=== PATIENT | male | born 1995 | race Two or more races ===

== ENCOUNTER 2017-04-14 03:36 | Emergency (ER) | payer MEDICARE ==
[2017-04-14 04:08] VITALS: BP 125/89; PULSE 73; TEMP 97.9; BMI 31.4
[2017-04-14] MEDS ORDERED: KETOROLAC TROMETHAMINE 30 MG/1 ML VIAL IVPUSH ONE (04:35)
[2017-04-14] MEDS ORDERED: SODIUM CHLORIDE 0.9% 1000 ML INFUS.BAG IV ONE (04:35)
[2017-04-14] MEDS ORDERED: METOCLOPRAMIDE HCL INJECTION 10 MG/2 ML VIAL IVPB ONE (04:36)
--- NOTE | 2017-04-14 04:39 | PDOC ---
History of Present Illness <Irma Angel - Last Filed: 04/14/17 06:49> - General History Source: Patient Exam Limitations: No Limitations - History of Present Illness Initial Comments: 04/14/17 05:08 The patient is a 22-year-old male with a significant past medical history of autism, Downs syndrome, and asthma, and presents to the emergency department with back pain, nausea, and dizziness that started today. He reports the back pain is diffuse. He states he has been spitting frequently due to the nausea. He also endorses a cough and diaphoresis. He denies having lifted any heavy objects recently. He denies any significant change in his diet. He denies any sick contacts. The patient denies chest pain, shortness of breath, and headache. The patient denies fever, chills, abdominal pain, hemoptysis, diarrhea and constipation. The patient denies dysuria, frequency, urgency and hematuria. He denies any Hx of kidney stones. Allergies: shrimp Past Surgical History: None reported Social History: No toxic habits reported PCP: Dr. Valenzuela <Lata Mcintyre - Last Filed: 04/14/17 06:57> - General Chief Complaint: Nausea/Vomiting Stated Complaint: FEVER/VOMITING/BACK PAIN Time Seen by Provider: 04/14/17 04:09 Past History - Past Medical History Asthma: Yes Seizures: Yes - Immunization History Immunization Up to Date: No - Psycho/Social/Smoking Cessation Hx Anxiety: No Suicidal Ideation: No Smoking History: Never smoked Have you smoked in the past 12 months: No Information on smoking cessation initiated: No Hx Alcohol Use: No Drug/Substance Use Hx: No Substance Use Type: None <Irma Angel - Last Filed: 04/14/17 06:49> <Lata Mcintyre - Last Filed: 04/14/17 06:57> - Past Medical History Allergies/Adverse Reactions: Allergies Allergy/AdvReac Type Severity Reaction Status Date / Time SHRIMP Allergy Hives Uncoded 04/14/17 04:08 Home Medications: Ambulatory Orders Carboxymethylcellulose Sodium [Lubricant Eye Drops] 1 each OU Q4H PRN #1 droperette 05/07/15 Doxycycline Hyclate [Vibramycin -] 100 mg PO BID #14 cap 05/07/15 Prednisone [Deltasone -] 10 mg PO DAILY #5 tablet 05/07/15 Prednisone [Deltasone -] 60 mg PO DAILY #12 tablet 05/07/15 Valacyclovir HCl [Valtrex -] 1,000 mg PO TID #21 tablet 05/07/15 Metformin HCl [Glucophage] 500 mg PO DAILY #30 tablet 04/14/17 Review of Systems - Review of Systems Able to Perform ROS?: Yes Comments:: 04/14/17 05:08 CONSTITUTIONAL: Present: (+) diaphoresis Absent: fever, chills, generalized weakness, malaise, loss of appetite HEENT: Absent: rhinorrhea, nasal congestion, throat pain, throat swelling, difficulty swallowing, mouth swelling, ear pain, eye pain, visual changes CARDIOVASCULAR: Absent: chest pain, syncope, palpitations, irregular heart rate, peripheral edema RESPIRATORY: Present: (+) cough Absent: shortness of breath, dyspnea with exertion, orthopnea, wheezing, stridor , hemoptysis GASTROINTESTINAL: Present: (+) nausea Absent: abdominal pain, abdominal distension, vomiting, diarrhea, constipation, melena, hematochezia GENITOURINARY: Absent: dysuria, frequency, urgency, hesitancy, hematuria, flank pain, genital pain MUSCULOSKELETAL: Absent: myalgia, arthralgia, joint swelling SKIN: Absent: rash, itching, pallor HEMATOLOGIC/IMMUNOLOGIC: Absent: easy bleeding, easy bruising, lymphadenopathy, frequent infections ENDOCRINE: Absent: unexplained weight gain, unexplained weight loss, heat intolerance, cold intolerance NEUROLOGIC: Present: (+) dizziness Absent: headache, focal weakness or paresthesias, unsteady gait, seizure, mental status changes, bladder or bowel incontinence PSYCHIATRIC: Absent: anxiety, depression, suicidal or homicidal ideation, hallucinations. <Lata Mcintyre - Last Filed: 04/14/17 06:57> *Physical Exam - Vital Signs Last Vital Signs Temp Pulse Resp BP Pulse Ox 97.9 F 73 18 125/89 97 04/14/17 04:03 04/14/17 04:03 04/14/17 04:03 04/14/17 04:03 04/14/17 04:03 <Irma Angel - Last Filed: 04/14/17 06:49> - Vital Signs Last Vital Signs Temp Pulse Resp BP Pulse Ox 97.9 F 73 18 125/89 97 04/14/17 04:03 04/14/17 04:03 04/14/17 04:03 04/14/17 04:03 04/14/17 04:03 - Physical Exam Comments: 04/14/17 05:09 GENERAL: Afebrile. Well developed, well nourished. Awake and alert. No acute distress. HEENT: Normocephalic, atraumatic. PERRLA, EOMI. No conjunctival pallor. Sclera are non- icteric. Moist mucous membranes. Oropharynx is clear. NECK: Supple. Full ROM. No JVD. Carotid pulses 2+ and symmetric, without bruits. No thyromegaly. No lymphadenopathy. CARDIOVASCULAR: Regular rate and rhythm. No murmurs, rubs, or gallops. Distal pulses are 2+ and symmetric. PULMONARY: (+) Decreased breath sounds over the right middle lung. (+) Some egophony. No wheezing, rales or rhonchi. ABDOMINAL: Soft. Non-tender. Non-distended. No rebound or guarding. No organomegaly. Normoactive bowel sounds. MUSCULOSKELETAL Normal range of motion at all joints. No bony deformities or tenderness. No CVA tenderness. EXTREMITIES: No cyanosis. No clubbing. No edema. No calf tenderness. SKIN: Warm and dry. Normal capillary refill. No rashes. No jaundice. NEUROLOGICAL: Alert, awake, appropriate. Cranial nerves 2-12 intact. No deficits to light touch and temperature in face, upper extremities and lower extremities. No motor deficits in the in face, upper extremities and lower extremities. Normoreflexic in the upper and lower extremities. Normal speech. Toes are down- going bilaterally. PSYCHIATRIC: Cooperative. Good eye contact. Appropriate mood and affect. <Lata Mcintyre - Last Filed: 04/14/17 06:57> ED Treatment Course - LABORATORY CBC & Chemistry Diagram: 04/14/17 04:42 04/14/17 04:42 - RADIOLOGY Radiology Studies Ordered: Category Date Time Status CHEST PA & LAT [RAD] Stat Radiology 04/14/17 04:34 Ordered <Irma Angel - Last Filed: 04/14/17 06:49> - LABORATORY CBC & Chemistry Diagram: 04/14/17 04:42 04/14/17 04:42 - ADDITIONAL ORDERS Additional order review: 04/14/17 04:42 RBC 5.33 MCV 85.9 MCHC 33.6 RDW 13.7 MPV 8.4 Neutrophils % 81.1 Lymphocytes % 12.3 D Monocytes % 4.4 Eosinophils % 1.5 Basophils % 0.7 <Lata Mcintyre - Last Filed: 04/14/17 06:57> Medical Decision Making - Medical Decision Making 04/14/17 04:37 Pt felt unwell today with nausea and dizziness, now with dry heaving. Pt is afebrile and appears well, but tired. He has normal exam, but he has right sided lung decreased breath sounds and egophany. No ill contracts and no hx of food poisoning. He complains of back pain. No spinal pain and no midline tenderness, no flank pain or dysuria. Pt will get labs checked and he will have 1L saline, toradol, and reglan for his nausea. 04/14/17 05:27 WBC is 10; EKG is NSR; however rate is 97/borderline tachy, given that pt is at rest and sleeping. 04/14/17 06:07 Labs are normal, except for an elevated GLC; I am awaiting a UA, to see if pt has glc in his urine. UA is pending. CXR also pending. Both will not get back by 7AM. Pt will be signed out to the day ER doc. <Irma Angel - Last Filed: 04/14/17 06:49> - Medical Decision Making 04/14/17 06:57 Patient Name: Hira Jacobsen THIS IS A PRELIMINARYREPORT FROM [facility] EXAM: X-ray chest IMAGES: 3 INDICATION: Back pain. Rule out right-sided pneumonia. DATE OF SERVICE: 2017-04-14 05:04:49.0 COMPARISON: none FINDINGS: The heart size is upper normal. The lungs are clear. The bones and soft tissues are normal IMPRESSION: No acute pathology. THIS DOCUMENT HAS BEEN ELECTRONICALLY SIGNED <Lata Mcintyre - Last Filed: 04/14/17 06:57> *DC/Admit/Observation/Transfer - Discharge Dispostion Admit: No <Irma Angel - Last Filed: 04/14/17 06:49> - Attestations Scribe Attestion: 04/14/17 05:08 Documentation prepared by Lata Mcintyre, acting as medical clinic manager for Irma Angel MD. <Lata Mcintyre - Last Filed: 04/14/17 06:57> Diagnosis at time of Disposition: Diabetes mellitus, new onset - Discharge Dispostion Disposition: HOME Condition at time of disposition: Improved - Prescriptions Prescriptions: Metformin HCl [Glucophage] 500 mg PO DAILY #30 tablet - Referrals Referrals: Kiran Valenzuela MD [Primary Care Provider] - - Patient Instructions Printed Discharge Instructions: Lifestyle Changes as Effective as Drugs in Preventing Progression to Diabet, Exercising Caution When You Have Diabetes
[2017-04-14 04:56] LABS: BASOPHIL 0.7 % (0-2.0); EOSINOPHIL 1.5 % (0-4.5); MCH 28.8 pg (25.7-33.7); MCHC 33.6 g/dl (32.0-35.9); MEAN CELL VOLUME 85.9 fl (80-96); MEAN PLT VOLUME 8.4 fl (7.5-11.1); NEUTROPHILS 81.1 % (42.8-82.8); PLATELET COUNT 226 K/MM3 (134-434); RDW 13.7 % (11.9-15.9); WHITE BLOOD COUNT 10.4 K/mm3 (4.0-10.0)
[2017-04-14 05:26] LABS: INR 1.06 (0.82-1.09); PROTHROMBIN TIME (PATIENT) 11.7 SEC (9.98-11.88)
[2017-04-14 05:35] LABS: ALBUMIN 4.6 g/dl (3.4-5.0); ALK PHOS 70 U/L (45-117); AMYLASE 62 U/L (25-115); ANION GAP 12 (8-16); BILIRUBIN,TOTAL 0.4 mg/dL (0.2-1.0); CALCIUM 9.3 mg/dL (8.5-10.1); CO2 25 mmol/L (21-32); CREATININE 0.9 mg/dL (0.7-1.3); GLUCOSE,RANDOM 127 mg/dL (74-106); SGPT/ALT 50 U/L (12-78); TOT PROT 7.5 g/dl (6.4-8.2)
[2017-04-14 05:37] LABS: SGOT/AST 27 U/L (15-37)
[2017-04-14 06:13] LABS: URINE APPEARANCE CLEAR; URINE BILIRUBIN NEGATIVE (NEGATIVE); URINE BLOOD NEGATIVE (NEGATIVE); URINE COLOR STRAW; URINE GLUCOSE (UA) 1+ (NEGATIVE); URINE KETONE TRACE (NEGATIVE); URINE LEUK ESTERASE NEGATIVE (NEGATIVE); URINE NITRITE NEGATIVE (NEGATIVE); URINE PROTEIN NEGATIVE (NEGATIVE); URINE UROBILINOGEN NEGATIVE E.U./dl (0.2-1.0)
[2017-04-14] MEDS ORDERED: metFORMIN HCL 500 MG TABLET (FP) PO ONE (06:47)
[2017-04-14] MEDS ORDERED: metFORMIN HCL 500 MG TABLET (FP) ONE (06:56)
--- NOTE | 2017-04-14 10:30 | EKG ---
Test Reason : Blood Pressure : / mmHG Vent. Rate : 097 BPM Atrial Rate : 097 BPM P-R Int : 136 ms QRS Dur : 086 ms QT Int : 356 ms P-R-T Axes : 073 055 042 degrees QTc Int : 452 ms NORMAL SINUS RHYTHM NORMAL ECG NO PREVIOUS ECGS AVAILABLE Confirmed by RODRICK GONZALEZ MD ([id number]) on 04/14/2017 10:29:33 AM Referred By: Confirmed By:RODRICK GONZALEZ MD
== END 2017-04-14 07:02 | disposition home or self-care (01) ==
LOC: SUPCPDRO 03:36 → JER 03:36
PROC: 3E0333Z Introduction of Anti-inflammatory into Peripheral Vein, Percutaneous Approach (ICD-10-PCS; principal; 2017-04-14)
PROC: 3E033GC Introduction of Other Therapeutic Substance into Peripheral Vein, Percutaneous Approach (ICD-10-PCS; 2017-04-14)
DX: E13.8 Other specified diabetes mellitus with unspecified complications (principal)
CPT/HCPCS: 36415; 71020-TC; 80053; 81003; 82150; 83690; 85025; 85610; 93005; 93010; 96374; 96375; 99282-25

== ENCOUNTER 2018-09-24 11:41 | Emergency (ER) | payer MEDICARE, OTHER ==
--- NOTE | 2018-09-24 11:55 | PDOC ---
Rapid Medical Evaluation Medical Evaluation: Allergies Allergy/AdvReac Type Severity Reaction Status Date / Time SHRIMP Allergy Hives Uncoded 04/14/17 04:08 I have performed a brief in-person evaluation of this patient. The patient presents with a chief complaint of: Hx asthma, developmental delay, seizure; C/O fever, NBNB emesis, watery diarrhea, generalized abdominal pain which started today Pertinent physical exam findings: In NAD, abdomen soft, ND I have ordered the following: Labs, IVF, Zofran, Pepcid The patient will proceed to the ED for further evaluation. 09/24/18 11:52 \
[2018-09-24 11:56] VITALS: BMI 30.2
[2018-09-24] MEDS ORDERED: SODIUM CHLORIDE 1,000 ML IV STA (11:56)
[2018-09-24] MEDS ORDERED: ONDANSETRON 4 MG/2 ML VIAL IVPUSH ONE (11:56)
[2018-09-24 12:55] LABS: BASO % 0.8 % (0-2.0); EOS % 0.1 % (0-4.5); HEMATOCRIT 46.1 % (35.4-49); HEMOGLOBIN 16.1 GM/dL (11.7-16.9); MCH 30.5 pg (25.7-33.7); MEAN CELL VOLUME 87.2 fl (80-96); MEAN PLT VOLUME 8.5 fl (7.5-11.1); MONO % 2.2 % (3.8-10.2); NEUT % 91.9 % (42.8-82.8); PLATELET COUNT 279 K/MM3 (134-434); RBC 5.29 M/mm3 (4.00-5.60); RDW 13.6 % (11.9-15.9); WHITE BLOOD COUNT 13.6 K/mm3 (4.0-10.0)
[2018-09-24] MEDS ORDERED: ACETAMINOPHEN 325 MG TABLET (FP) PO ONE (13:01)
--- NOTE | 2018-09-24 13:03 | PDOC ---
History of Present Illness - General Chief Complaint: Nausea/Vomiting Stated Complaint: NAUSEA/VOMITING Time Seen by Provider: 09/24/18 11:57 History Source: Patient, Family Exam Limitations: No Limitations - History of Present Illness Initial Comments: Pt is a 23 yo M, with PMH asthma (singulair pump at home), developmental delay, and sz (last sz 10 years ago), who is presenting with complaints of diffuse crampy abdominal pain, subjective chills, nausea, and 1 episode of NBNB vomiting this morning. The pain started around 9:30 am this morning. He describes the pain as crampy and is located mostly in the periumbilical region with no radiation. There are no exacerbating or alleviating symptoms. He was able to eat lunch today with no vomiting. Pt denies any fevers, headache, vision changes, cough, wheezing, chest pain, palpitations, SOB, urinary symptoms , diarrhea/constipation, or leg swelling. Social: Pt denies any cigarette, alcohol, or drug use. Pt denies any recent travel or sick contacts. Surgical: no relevant history Family: Grandmother w DM. Mother and grandmother with "small heart murmur". 09/24/18 13:14 Past History - Travel Traveled outside of the country in the last 30 days: No Close contact w/someone who was outside of country & ill: No - Past Medical History Allergies/Adverse Reactions: Allergies Allergy/AdvReac Type Severity Reaction Status Date / Time shellfish derived Allergy Mild Hives Verified 09/24/18 13:41 shrimp Allergy Mild Hives Verified 09/24/18 13:41 Home Medications: Ambulatory Orders Metformin HCl [Glucophage] 500 mg PO DAILY #30 tablet 04/14/17 Asthma: Yes COPD: No Seizures: Yes Other medical history: DEVELOPMENTAL DELAYED - Immunization History Immunization Up to Date: No - Suicide/Smoking/Psychosocial Hx Smoking History: Never smoked Have you smoked in the past 12 months: No Hx Alcohol Use: No Drug/Substance Use Hx: No Substance Use Type: None Review of Systems - Review of Systems Able to Perform ROS?: Yes Is the patient limited Marshallese proficient: No Constitutional: Yes: Chills, Weight Stable. No: Diaphoresis, Fever, Loss of Appetite, Weakness HEENTM: No: Recent change in vision, Nose Congestion, Throat Pain, Difficulty Swallowing Respiratory: No: Cough, Orthopnea, Shortness of Breath Cardiac (ROS): No: Chest Pain, Irregular Heart Rate, Lightheadedness, Palpitations, Syncope *Physical Exam - Vital Signs Last Vital Signs Temp Pulse Resp BP Pulse Ox 97.8 F 58 L 16 126/75 100 09/24/18 11:53 09/24/18 11:53 09/24/18 11:53 09/24/18 11:53 09/24/18 11:53 Moderate Sedation - Procedure Monitoring Vital Signs: Procedure Monitoring Vital Signs Temperature 97.8 F 09/24/18 11:53 Pulse Rate 58 L 09/24/18 11:53 Respiratory Rate 16 09/24/18 11:53 Blood Pressure 126/75 09/24/18 11:53 O2 Sat by Pulse Oximetry (%) 100 09/24/18 11:53 ED Treatment Course - LABORATORY CBC & Chemistry Diagram: 09/24/18 12:35 09/24/18 12:35 Medical Decision Making - Medical Decision Making Pt was seen at bedside, also will be seen by attending Dr. Simon. Pt presenting with complaints of diffuse crampy abdominal pain, subjective chills, nausea, and 1 episode of NBNB vomiting this morning. The pain started around 9:30 am this morning. He describes the pain as crampy and is located mostly in the periumbilical region with no radiation. There are no exacerbating or alleviating symptoms. He was able to eat lunch today with no vomiting. Pt denies any fevers, headache, vision changes, chest pain, palpitations, SOB, urinary symptoms, diarrhea/constipation, or leg swelling. PE showed stable vital signs, afebrile. Mild tenderness to palpation in the epigastric and periumbilical area, no rebound, no guarding. Heart and lung sounds clear. Oropharynx without erythema or exudates. Considering viral enteritis vs food poisoning/bacterial enteritis vs influenza vs pancreatitis vs early appendicitis. Low suspicion for ACS as pt has no risk factors (no smoking, no family history) and no chest pain. Ordered work-up including CBC, CMP, UA. Provided 1 L NS, 4 mg IV zofran, 20 mg IV pepcid, and 650 mg PO tylenol for improvement of nausea and discomfort. Will continue to reassess pt and monitor for symptomatic improvement. CBC showed mild elevation of WBC 13.6. Could still be viral/bacterial enteritis vs influenza vs other abdominal pathology (appe). 09/24/18 13:03 Influenza negative. ECG showed arrthymia, appears to be atrial ectopic (multiple morphologies of p waves). Pt asymptomatic at this time. Will provided copy of EKG for pt to take to PCP appointment. 09/24/18 13:15 CMP generally WNL. AST and ALT mildly elevated. Urine sent to lab for analysis. Providing 25 mg IV benadryl and 10 mg IV reglan for continued nausea. Pt still has mild periumbilical pain on examination. Will continue to reassess. 09/24/18 14:04 Still pending urine from lab. Pt now sleeping comfortably. If pt continues to improve and urine negative, pt should be able to discharge to home. 09/24/18 14:39 UA negative. Considering normal lab results and clinical improvement pt can be discharged to home with follow-up. Pt advised to follow-up with PCP in 1-2 days. Strict return precautions provided with pt understanding. 09/24/18 15:21 *DC/Admit/Observation/Transfer Diagnosis at time of Disposition: Abdominal pain Qualifiers: Abdominal location: generalized Qualified Code(s): R10.84 - Generalized abdominal pain Vomiting Qualifiers: Vomiting type: unspecified Vomiting Intractability: non-intractable Nausea presence: with nausea Qualified Code(s): R11.2 - Nausea with vomiting, unspecified - Discharge Dispostion Disposition: HOME Condition at time of disposition: Improved Decision to Admit order: No - Referrals Referrals: Yudy Bishop MD [Primary Care Provider] - - Patient Instructions Printed Discharge Instructions: DI for Abdominal Pain-Adult Additional Instructions: You were seen in the ER today for abdominal pain and vomiting. The results of your labs and imaging today showed a small infection, but were otherwise normal. Please follow-up with your primary care doctor within 1-2 days to discuss your visit and make sure your symptoms have improved. Please return to the ER if you have any worsening pain or abdominal pain that begins to migrate or change, development of fevers or chills, loss of consciousness, inability to tolerate food or fluids, blood in your vomit or stool, or any other concerns. Print Language: GUAMANIAN - Post Discharge Activity
[2018-09-24 13:24] LABS: ALBUMIN 4.8 g/dl (3.4-5.0); ALK PHOS 67 U/L (45-117); ANION GAP 10 MMOL/L (8-16); BILIRUBIN,TOTAL 0.5 mg/dL (0.2-1); BLOOD UREA NITROGEN 14 mg/dL (7-18); CALCIUM 9.9 mg/dL (8.5-10.1); CHLORIDE 101 mmol/L (98-107); CO2 26 mmol/L (21-32); CREATININE 0.8 mg/dL (0.55-1.3); GLUCOSE,RANDOM 117 mg/dL (74-106); LIPASE 149 U/L (73-393); POTASSIUM 4.8 mmol/L (3.5-5.1); SGOT/AST 52 U/L (15-37); SGPT/ALT 71 U/L (13-61); SODIUM 137 mmol/L (136-145); TOT PROT 8.1 g/dl (6.4-8.2)
--- NOTE | 2018-09-24 13:31 | PDOC ---
Attending Attestation - Resident Resident Name: Julianne Fernández - ED Attending Attestation I have performed the following: I have examined & evaluated the patient, The case was reviewed & discussed with the resident, I agree w/resident's findings & plan, Exceptions are as noted - HPI HPI: 09/24/18 13:29 23y M hx of asthma, developmental delay, seizures (not on mesd), presents with diffuse abominal pain since this morning 1 episode of nbnb vomiting. pain is in the periumbiilcal region. Patient notes that the pain seems to come and go and when it worsens lasts for several hours no resolve. Notes that the pain occasionally worsens with food intake. No prior history of similar pain in the past. No prior abdominal surgery. No associated fever, chills, dysuria, diarrhea , hematuria, chest pain, shortness breath. Differential for the patient's symptoms includes gastritis, pancreatitis, gastroenteritis, will stones, kidney stones, uti, or possible early appendicitis Obtain blood work will give Pepcid and Maalox fluids, Zofran will reassess - Physicial Exam PE: 09/24/18 13:48 GENERAL: The patient is awake, alert, and fully oriented, Nontoxic - in no acute distress. HEAD: Normocephalic, atraumatic. EYES: extraocular movements intact, sclera anicteric, conjunctiva clear. ENT: Normal voice, Moist mucous membranes. NECK: Normal range of motion, supple LUNGS: Breath sounds equal, clear to auscultation bilaterally. No wheezes, no rhonchi, no rales. HEART: Regular rate and rhythm, normal S1 and S2 without murmur, rub or gallop. ABDOMEN: Soft, mild epigastric tenderness EXTREMITIES: Normal range of motion, no edema. No clubbing or cyanosis. No cords, erythema, or tenderness. NEUROLOGICAL: No facial assymetry, Normal speech, PSYCH: Normal mood, normal affect. SKIN: Warm, Dry, normal turgor, - Medical Decision Making 09/24/18 15:09 The patient's lab work is noted for mild leukocytosis. he was reassessed abdomen is soft nontender the patient was able to tolerate some juice. anticipage discharge with PMD follow-up Strict return precautions were discussed including any further abdominal pain Heart Score/ECG Review - ECG Impressions Comment:: 09/24/18 14:43 Twelve-lead EKG was performed and reviewed by me. There is normal sinus rhythm with a normal rate. P waves with multiple morphologies present Normal [place], normal R wave progression
[2018-09-24] MEDS ORDERED: ACETAMINOPHEN 325 MG TABLET (FP) ONE (13:46)
[2018-09-24] MEDS ORDERED: METOCLOPRAMIDE HCL INJECTION 10 MG/2 ML VIAL IVPUSH ONE (13:51)
[2018-09-24] MEDS ORDERED: FAMOTIDINE 20 MG/50 ML IVPB 20 MG/50 ML MG IVPB ONE (14:00)
[2018-09-24] MEDS ORDERED: METOCLOPRAMIDE HCL INJECTION 10 MG/2 ML VIAL ONE (14:03)
[2018-09-24 14:25] LABS: URINE APPEARANCE CLEAR; URINE BILIRUBIN NEGATIVE (<2.0 mg/dL); URINE COLOR LTYELLOW; URINE GLUCOSE (UA) NEGATIVE (NEGATIVE); URINE KETONE 1+ (NEGATIVE); URINE LEUK ESTERASE NEGATIVE (NEGATIVE); URINE NITRITE NEGATIVE (NEGATIVE); URINE PROTEIN NEGATIVE (NEGATIVE); URINE UROBILINOGEN NEGATIVE mg/dL (0.2-1.0)
[2018-09-24 15:11] LABS: ACANTHOCYTES 0; ANISOCYTOSIS 0; HELMET CELLS 0; HOWELL-JOLLY BODIES 0; MACROCYTOSIS 0; OVALOCYTE 0; PLATELET ESTIMATE NORMAL; ROULEAU 0; SICKELED CELLS 0; TARGET CELLS 0; TEAR DROP CELLS 0; TOXIC GRANULATION 0
[2018-09-24 15:27] VITALS: BP 137/62; PULSE 71; TEMP 98.9
--- NOTE | 2018-09-24 16:56 | EKG ---
Test Reason : Blood Pressure : / mmHG Vent. Rate : 069 BPM Atrial Rate : 069 BPM P-R Int : 126 ms QRS Dur : 080 ms QT Int : 392 ms P-R-T Axes : 054 036 042 degrees QTc Int : 420 ms SINUS RHYTHM WITH MARKED SINUS ARRHYTHMIA OTHERWISE NORMAL ECG WHEN COMPARED WITH ECG OF 14-APR-2017 05:18, NO SIGNIFICANT CHANGE WAS FOUND Confirmed by CAMILO LARES MD ([id number]) on 09/24/2018 4:55:51 PM Referred By: Confirmed By:CAMILO LARES MD
== END 2018-09-24 15:27 | disposition home or self-care (01) ==
LOC: JER 11:41
DX: R10.84 Generalized abdominal pain (principal); R62.59 Other lack of expected normal physiological development in childhood; J45.909 Unspecified asthma, uncomplicated; Z86.69 Personal history of other diseases of the nervous system and sense organs
CPT/HCPCS: 36415; 80053; 81003; 83690; 85025; 87804; 93005; 93010; 99285-25; J7030